=== PATIENT | male | born 1990 | race Caucasian/White ===

== ENCOUNTER 2017-02-17 12:46 | Emergency (ER) | payer SELFPAY ==
--- NOTE | 2017-02-17 12:56 | ER Document Report ---
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 It starts as a mild irritation and progresses to where he has been mucus discharge. He has had it intermittently for 2 months. No new job or living location. no eyeball pain. This morning he had some adherent mucous over the corneal and he rubbed it off causing worsening irritation to the right eyeball. No fever. No chronic dx psoriasis, excema, seborrhea, orarthritis. Also when he uses warm compress it causing the periorbital rash bilaterally. Associated Symptoms: None Exacerbated by: Denies Relieved by: Denies Similar symptoms previously: No Recently seen / treated by doctor: No - ROS ROS below otherwise negative: Yes Systems Reviewed and Negative: Yes All other systems reviewed and negative - DERM Skin Color: Normal Past Medical History - General Information source: Patient - Social History Smoking Status: Current Every Day Smoker Frequency of alcohol use: None Drug Abuse: None Lives with: Family Family History: Hypertension, Malignancy Pulmonary Medical History: Reports: Hx Asthma, Hx Bronchitis Neurological Medical History: Reports: Hx Migraine Renal/ Medical History: Denies: Hx Peritoneal Dialysis Surgical Hx: Negative - Immunizations Hx Diphtheria, Pertussis, Tetanus Vaccination: Yes Vertical Provider Document - CONSTITUTIONAL Agree With Documented VS: Yes Exam Limitations: No Limitations - INFECTION CONTROL TRAVEL OUTSIDE OF THE [place] IN LAST 30 DAYS: No - HEENT HEENT: Conjuctival Injection - bilateral, PERRLA Notes: inflamed bulbar and palpebral conjunctiva, anterior chambers clear, no ulcer. fluorescein uptake right cornea at 6 oclock with lesser uptake at 9 oclock. no auricular nodes. dermatitis ?seborrheic to upper nares, lateral canthi, upper lids - NECK Neck: Supple. negative: Lymphadenopathy-Left, Lymphadenopathy-Right - RESPIRATORY Respiratory: Breath Sounds Normal, No Respiratory Distress O2 Sat by Pulse Oximetry: 99 - CARDIOVASCULAR Cardiovascular: Regular Rate, Regular Rhythm - NEURO Level of Consciousness: Awake, Alert, Appropriate - DERM Integumentary: Warm, Dry, Rash - see above Course - Vital Signs Vital signs: Temp Pulse Resp BP Pulse Ox 97.7 F 87 16 134/67 H 99 02/17/17 12:53 02/17/17 12:53 02/17/17 12:53 02/17/17 12:53 02/17/17 12:53 Discharge - Discharge Clinical Impression: Periorbital dermatitis Right corneal abrasion Qualifiers: Encounter type: initial encounter Qualified Code(s): S05.01XA - Injury of conjunctiva and corneal abrasion without foreign body, right eye, initial encounter Conjunctivitis Qualifiers: Conjunctivitis type: acute Acute conjunctivitis type: unspecified Laterality: bilateral Qualified Code(s): H10.33 - Unspecified acute conjunctivitis, bilateral Condition: Good Disposition: HOME, SELF-CARE Instructions: Corneal Abrasion ([facility]), Conjunctivitis ([facility]), Ketorolac Tromethamine Eye Drops ([facility]), Eyedrop Use ([facility]), Contact Dermatitis ([facility]) Additional Instructions: see the eye doctor sunday return to the ER if worse tomorrow erythromycin eye ointment three times a day to the skin around your eyes where the rash is polytrim eye drops 1 drop each eye every 4 hours up to 6 doses per day 1 drop each eye for eyeball pain every 8 hours Please complete the patient satisfaction survey if you get one, and return it.. If you do not receive a survey, then you can go to the [facility] website, [email or web address] and place your comments about your very good care. Thank you very much. It was a pleasure being your medical provider today. Referrals: PATRICIA CHU MD [ACTIVE STAFF] - 02/19/17
[2017-02-17] MEDS ORDERED: ERYTHROMYCIN 0.5% OPH OINT 1 GM UNIT DOSE OU ONE (13:47)
[2017-02-17] MEDS ORDERED: KETOROLAC TROMETHAMINE 0.45% 4 DROP/0.4 ML DROPERETTE OU ONE (13:47)
[2017-02-17] MEDS ORDERED: POLYMYXIN B SULFATE/TMP OPH SOLN (10 ML/ER DISP) OU ONE (13:49)
[2017-02-17 15:06] VITALS: BP 132/78
== END 2017-02-17 15:07 | disposition home or self-care (01) ==
LOC: ER 12:46
DX: S05.01XA Injury of conjunctiva and corneal abrasion without foreign body, right eye, initial encounter (principal); H10.33 Unspecified acute conjunctivitis, bilateral; L30.8 Other specified dermatitis; H57.13 Ocular pain, bilateral; R21 Rash and other nonspecific skin eruption; F17.200 Nicotine dependence, unspecified, uncomplicated; X58.XXXA Exposure to other specified factors, initial encounter
CPT/HCPCS: 99282; J3490

== ENCOUNTER 2017-04-17 08:37 | Emergency (ER) | payer SELFPAY ==
[2017-04-17 08:54] VITALS: BP 127/71
--- NOTE | 2017-04-17 09:26 | ER Document Report ---
HPI - HPI Patient complains to provider of: eyes red and draining Onset: Other Onset/Duration: Gradual Quality of pain: Burning Severity: Moderate Pain Level: 3 Context: Patient states irritation started in left eye followed by greenish yellow drainage. He has been rubbing eyes, and now has spread to both eyes. Patient does not wear contacts. Associated Symptoms: None Exacerbated by: Denies Relieved by: Denies Similar symptoms previously: Yes Recently seen / treated by doctor: No - ROS ROS below otherwise negative: Yes Systems Reviewed and Negative: Yes All other systems reviewed and negative - CONSTITUTIONAL Constitutional: DENIES: Fever - EENT EENT: REPORTS: Eye problems. DENIES: Congestion - NEURO Neurology: DENIES: Headache - CARDIOVASCULAR Cardiovascular: DENIES: Chest pain - RESPIRATORY Respiratory: DENIES: Trouble Breathing - GASTROINTESTINAL Gastrointestinal: DENIES: Abdominal Pain - URINARY Urinary: DENIES: Dysuria - MUSCULOSKELETAL Musculoskeletal: DENIES: Extremity pain - DERM Skin Color: Normal Past Medical History - General Information source: Patient - Social History Smoking Status: Current Every Day Smoker Cigarette use (# per day): Yes Frequency of alcohol use: None Drug Abuse: None Lives with: Family Family History: Hypertension, Malignancy Patient has suicidal ideation: No Patient has homicidal ideation: No Pulmonary Medical History: Reports: Hx Asthma, Hx Bronchitis Neurological Medical History: Reports: Hx Migraine Surgical Hx: Negative - Immunizations Hx Diphtheria, Pertussis, Tetanus Vaccination: Yes Vertical Provider Document - CONSTITUTIONAL Agree With Documented VS: Yes Exam Limitations: No Limitations General Appearance: WD/WN, No Apparent Distress - INFECTION CONTROL TRAVEL OUTSIDE OF THE [place] IN LAST 30 DAYS: No - HEENT HEENT: Atraumatic, Conjuctival Injection, Normocephalic, PERRLA Notes: Greenish yellow drainage noted from both eyes - NECK Neck: Normal Inspection - RESPIRATORY Respiratory: Breath Sounds Normal, No Respiratory Distress O2 Sat by Pulse Oximetry: 98 - CARDIOVASCULAR Cardiovascular: Regular Rate, Regular Rhythm - GI/ABDOMEN Gastrointestinal: Abdomen Soft - MUSCULOSKELETAL/EXTREMETIES Musculoskeletal/Extremeties: JORGE JACKSON - NEURO Level of Consciousness: Awake, Alert, Appropriate - DERM Integumentary: Warm, Dry, No Rash Course - Vital Signs Vital signs: Temp Pulse Resp BP Pulse Ox 98.7 F 93 16 127/71 H 98 04/17/17 08:52 04/17/17 08:52 04/17/17 08:52 04/17/17 08:52 04/17/17 08:52 Discharge - Discharge Clinical Impression: Conjunctivitis Qualifiers: Conjunctivitis type: acute Acute conjunctivitis type: unspecified Laterality: bilateral Qualified Code(s): H10.33 - Unspecified acute conjunctivitis, bilateral Condition: Good Disposition: HOME, SELF-CARE Instructions: Conjunctivitis ([facility]), Eyedrop Use ([facility]) Additional Instructions: Warm compresses to eyes Do not rub eyes After conjunctivitis clears, may consider [id number] allergy eyedrops such as Naphcon A Follow-up with your eye doctor for recheck within 1 week return if worsens and as needed Prescriptions: Polymyxin B Sulf/Trimethoprim [Polytrim Eye Drops] 1 drop OU Q4H #1 bottle Forms: Return to Work
== END 2017-04-17 09:48 | disposition home or self-care (01) ==
LOC: ER 08:37
DX: H10.33 Unspecified acute conjunctivitis, bilateral (principal); J45.909 Unspecified asthma, uncomplicated; F17.210 Nicotine dependence, cigarettes, uncomplicated
CPT/HCPCS: 99283

== ENCOUNTER 2017-08-25 18:46 | Emergency (ER) | payer SELFPAY ==
[2017-08-25 18:51] VITALS: BP 134/81
[2017-08-25] MEDS ORDERED: ONDANSETRON 4 MG TAB.RAPDIS PO ONE (20:04)
--- NOTE | 2017-08-25 20:25 | ER Document Report ---
ED Flu Like - General Chief Complaint: Flu Symptoms Stated Complaint: NAUSEA Time Seen by Provider: 08/25/17 20:00 Mode of Arrival: Ambulatory Information source: Patient TRAVEL OUTSIDE OF THE [place] IN LAST 30 DAYS: No - HPI Patient complains to provider of: I feel like of the flu Onset: This morning Timing/Duration: Sudden Quality of pain: Achy Associated symptoms: Chills, Nonproductive cough, Nausea, Vomiting Similar symptoms previously: Yes Recently seen / treated by doctor: No Notes: States he feels against the flu. He did not get the flu shot this year because he does not have insurance. He states that he did take Motrin and Tylenol today however he is unable to tolerate food or fluids because he is vomiting. Smokes about a pack a day. - Related Data Allergies/Adverse Reactions: No Known Allergies Allergy (Verified 08/25/17 18:47) Past Medical History - General Information source: Patient - Social History Smoking Status: Current Every Day Smoker Chew tobacco use (# tins/day): No Frequency of alcohol use: None Drug Abuse: None Lives with: Family Family History: Hypertension, Malignancy Patient has suicidal ideation: No Patient has homicidal ideation: No - Past Medical History Cardiac Medical History: Reports: None Pulmonary Medical History: Reports: Hx Asthma, Hx Bronchitis EENT Medical History: Reports: None Neurological Medical History: Reports: Hx Migraine Endocrine Medical History: Reports: None Renal/ Medical History: Reports: None. Denies: Hx Peritoneal Dialysis Malignancy Medical History: Reports None GI Medical History: Reports: None Musculoskeltal Medical History: Reports None Skin Medical History: Reports None Psychiatric Medical History: Reports: None Traumatic Medical History: Reports: None Infectious Medical History: Reports: None Past Surgical History: Reports: None - Immunizations Hx Diphtheria, Pertussis, Tetanus Vaccination: Yes Review of Systems - Review of Systems Constitutional: See HPI EENT: See HPI Cardiovascular: No symptoms reported Respiratory: No symptoms reported Gastrointestinal: See HPI Genitourinary: No symptoms reported Male Genitourinary: No symptoms reported Musculoskeletal: No symptoms reported Skin: No symptoms reported Hematologic/Lymphatic: No symptoms reported Neurological/Psychological: No symptoms reported Physical Exam - Vital signs Vitals: Temp Pulse Resp BP Pulse Ox 98.5 F 102 H 16 134/81 H 99 08/25/17 18:50 08/25/17 18:50 08/25/17 18:50 08/25/17 18:50 08/25/17 18:50 - Notes Notes: PHYSICAL EXAMINATION: GENERAL: Well-appearing, well-nourished and in no acute distress. Sitting up on edge of bed looking at his phone when I came in to see him and examine him. HEAD: Atraumatic, normocephalic. EYES: Pupils equal round and reactive to light, extraocular movements intact, sclera anicteric, conjunctiva are normal. ENT: Nares patent, oropharynx clear without exudates. Moist mucous membranes. NECK: Normal range of motion, supple without lymphadenopathy LUNGS: Breath sounds clear to auscultation bilaterally and equal. No wheezes rales or rhonchi. HEART: Regular rate and rhythm without murmurs ABDOMEN: Soft, nontender, nondistended abdomen. No guarding, no rebound. No masses appreciated. Musculoskeletal: Normal range of motion, no pitting or edema. No cyanosis. NEUROLOGICAL: Cranial nerves grossly intact. Normal speech, normal gait. Normal sensory, motor exams PSYCH: Normal mood, normal affect. SKIN: Warm, Dry, normal turgor, no rashes or lesions noted. Course - Re-evaluation Re-evalutation: 08/25/17 20:48 Tolerated p.o. fluids. 08/25/17 20:48 Labs- All tests 24 hr 08/25/17 20:10 Influenza A (Rapid) NEGATIVE Influenza B (Rapid) NEGATIVE - Vital Signs Vital signs: Temp Pulse Resp BP Pulse Ox 98.5 F 102 H 16 134/81 H 99 08/25/17 18:50 08/25/17 18:50 08/25/17 18:50 08/25/17 18:50 08/25/17 18:50 Discharge - Discharge Clinical Impression: Viral syndrome Disposition: HOME, SELF-CARE Instructions: Acetaminophen, Fever ([facility]), Viral Syndrome ([facility]) Additional Instructions: Follow up with your physician tomorrow for further care or return to the ED IMMEDIATELY if symptoms worsen or new concerns occur. If you cannot afford to follow up with your primary care physician a list of low cost clinics have been provided at the end of your discharge papers as well. Prescriptions: Ondansetron [Zofran Odt 4 mg Tablet] 1 - 2 tab PO Q4H PRN #15 tab.rapdis PRN Reason: For Nausea/Vomiting Referrals: [facility] [Provider Group] - Follow up as needed
[2017-08-25 20:33] LABS: A TYPE INFLUENZA AG NEGATIVE (NEGATIVE); B INFLUENZA AG NEGATIVE (NEGATIVE)
== END 2017-08-25 20:52 | disposition home or self-care (01) ==
LOC: ER 18:46
DX: R11.2 Nausea with vomiting, unspecified (principal); B34.9 Viral infection, unspecified; R68.83 Chills (without fever); F17.200 Nicotine dependence, unspecified, uncomplicated
CPT/HCPCS: 99283; 87804; S0119

== ENCOUNTER 2019-05-04 20:25 | Emergency (ER) | payer SELFPAY ==
[2019-05-04] MEDS ORDERED: IPRATROPIUM/ALBUTEROL 0.5-2.5 MG/3 ML AMPUL NEB ONE (21:10)
[2019-05-04] MEDS ORDERED: PREDNISONE 20 MG TABLET PO ONE (21:10)
--- NOTE | 2019-05-04 21:13 | ER Document Report ---
ED General - General Chief Complaint: Fever Stated Complaint: FEVER Time Seen by Provider: 05/04/19 21:04 Notes: Patient is a 28-year-old male that comes emergency department for chief complaint of congestion, cough, sore throat, and feeling like he is running fevers at home for the past 3 days. He states he has been exposed to people who were positive for strep and told he had the flu. He smokes, he has a history of asthma, he does use a home albuterol inhaler which he states does help, he states he was wheezing more earlier. Patient also states that he has a fractured molar in the left upper jaw which has become painful over the past couple of days. He does have a dental follow-up planned but the tooth has become more painful. He denies any medication or medical history otherwise. He denies chest pain, vomiting, headache. TRAVEL OUTSIDE OF THE [place] IN LAST 30 DAYS: No - Related Data Allergies/Adverse Reactions: No Known Allergies Allergy (Verified 08/25/17 18:47) Past Medical History - General Information source: Patient - Social History Smoking Status: Current Every Day Smoker Frequency of alcohol use: Rare Drug Abuse: None Lives with: Family Family History: Hypertension, Malignancy Patient has suicidal ideation: No Patient has homicidal ideation: No Pulmonary Medical History: Reports: Hx Asthma, Hx Bronchitis Neurological Medical History: Reports: Hx Migraine Renal/ Medical History: Denies: Hx Peritoneal Dialysis - Immunizations Hx Diphtheria, Pertussis, Tetanus Vaccination: Yes Review of Systems - Review of Systems Constitutional: See HPI EENT: See HPI Cardiovascular: No symptoms reported Respiratory: See HPI Gastrointestinal: No symptoms reported Genitourinary: No symptoms reported Male Genitourinary: No symptoms reported Musculoskeletal: No symptoms reported Skin: No symptoms reported Hematologic/Lymphatic: No symptoms reported Neurological/Psychological: No symptoms reported Physical Exam - Vital signs Vitals: Temp Pulse Resp BP Pulse Ox 99.8 F 117 H 22 H 143/76 H 99 05/04/19 20:32 05/04/19 20:32 05/04/19 20:32 05/04/19 20:32 05/04/19 20:32 - Notes Notes: GENERAL: Alert, interacts well. No acute distress. HEAD: Normocephalic, atraumatic. EYES: Pupils equal, round, and reactive to light. Extraocular movements intact. ENT: Oral mucosa moist, tongue midline. Oropharynx unremarkable. Airway patent. Mild nasal congestion, no nasal septal hematoma, TM's intact. Left upper posterior molar fractured with erythema of the gumline and tenderness but no oral abscess or other concerning or pharyngeal exam findings. NECK: Full range of motion. Supple. Trachea midline. LUNGS: Frequent coughing, few scattered expiratory wheezes, clear breath sounds otherwise. No respiratory distress. HEART: Regular rate and rhythm. No murmur ABDOMEN: Soft, non-tender. Non-distended. Bowel sounds present in all 4 quadrants. GENITOURINARY: Deferred EXTREMITIES: Moves all 4 extremities spontaneously. No edema, normal radial and dorsalis pedis pulses bilaterally. No cyanosis. BACK: no cervical, thoracic, lumbar midline tenderness. No saddle anesthesia, normal distal neurovascular exam. Moves all extremities in full range of motion. NEUROLOGICAL: Alert and oriented x3. Normal speech. Cranial nerves II through XII grossly intact. PSYCH: Normal affect, normal mood. SKIN: Warm, dry, normal turgor. No rashes or lesions noted. Course - Re-evaluation Re-evalutation: Patient with frequent coughing on exam, sinus congestion, a few scattered coarse breath sounds and wheezes initially but this quickly resolved with a single DuoNeb. Patient is borderline tachycardic but has been using his albuterol. Oropharyngeal exam is very unremarkable, nontender sinuses, no headache or nuchal rigidity, unremarkable exam otherwise except for dental exam. Strep negative, influenza negative, chest x-ray negative for pneumonia. Most likely viral illness although patient does have additional dental infection. However he does not have oral abscess, swelling of the neck, evidence of Davion's angina. He was started on penicillin, prednisone, provided with an inhaler and spacer. Discussed dental follow-up, discussed return precautions in detail. Patient states appreciation and agreement with plan. - Vital Signs Vital signs: Temp Pulse Resp BP Pulse Ox 100.2 F 111 H 16 114/62 96 05/04/19 22:45 05/04/19 22:45 05/04/19 22:45 05/04/19 22:45 05/04/19 22:45 Discharge - Discharge Clinical Impression: Dental infection, Tobacco abuse Upper respiratory infection Qualifiers: URI type: unspecified URI Qualified Code(s): J06.9 - Acute upper respiratory infection, unspecified Asthma exacerbation Qualifiers: Asthma severity: mild Asthma persistence: unspecified Qualified Code(s): J45.901 - Unspecified asthma with (acute) exacerbation Condition: Stable Disposition: HOME, SELF-CARE Additional Instructions: Your strep and your influenza test are negative, your chest x-ray is negative. Your evaluation is consistent with a viral upper respiratory infection, asthma exacerbation, and dental infection. Take the antibiotics as prescribed, take the prednisone as prescribed, use your albuterol inhaler, and rest. Follow-up with the dental clinic for additional management or this will continue to occur. Return if you worsen including increased difficulty breathing, spiking fevers, swelling of the face, or any other concerning or worsening symptoms. Prescriptions: Prednisone [Deltasone 20 mg Tablet] 3 tab PO DAILY 5 Days #15 tablet Penicillin V Potassium [Penicillin Vk 500 mg Tablet] 500 mg PO BID #20 tablet Forms: Smoking Cessation Education
[2019-05-04 21:39] LABS: A TYPE INFLUENZA AG NEGATIVE (NEGATIVE); B INFLUENZA AG NEGATIVE (NEGATIVE)
--- NOTE | 2019-05-04 21:52 | RADIOLOGY REPORT (SQ) ---
EXAM DESCRIPTION: XR CHEST 2 VIEWS COMPLETED DATE/TME: 05/04/2019 21:11 CLINICAL HISTORY: 28 years, Male, productive cough, fevers COMPARISON: None. NUMBER OF VIEWS: 2 TECHNIQUE: Two views of the chest were obtained in [place] and lateral projection. LIMITATIONS: None. FINDINGS: Unremarkable cardiac and mediastinal silhouette. Heart size is normal. Lungs are clear without focal opacity, pneumothorax or pleural effusions. The visualized bones are within normal limits. IMPRESSION: No acute cardiopulmonary abnormalities. copyright 2010 [employer]- All Rights Reserved
[2019-05-04] MEDS ORDERED: PENICILLIN V POTASSIUM 500 MG TABLET PO ONE (22:05)
[2019-05-04] MEDS ORDERED: ALBUTEROL SULFATE HFA (90 MCG/PUFF) 8 GM MDI (1 MDI/ER DISP) IH ONE (22:05)
[2019-05-04] MEDS ORDERED: LIDOCAINE 2% VISCOUS SOLN 20 ML UDCUP PO ONE (22:30)
[2019-05-04 22:53] VITALS: BP 114/62
== END 2019-05-04 22:52 | disposition home or self-care (01) ==
LOC: ER 20:25
DX: J45.901 Unspecified asthma with (acute) exacerbation (principal); J06.9 Acute upper respiratory infection, unspecified; K04.7 Periapical abscess without sinus; R05 Cough; J02.9 Acute pharyngitis, unspecified; R09.81 Nasal congestion; F17.200 Nicotine dependence, unspecified, uncomplicated; Z20.818 Contact with and (suspected) exposure to other bacterial communicable diseases
CPT/HCPCS: 87070; 87880; 87804; 71046; J3490 ×2; J7512; J7620; 94640; 99283

== ENCOUNTER 2019-05-25 16:10 | Emergency (ER) | payer SELFPAY ==
--- NOTE | 2019-05-25 16:29 | ER Document Report ---
ED Medical Screen (RME) - General Chief Complaint: Cough Stated Complaint: COUGH Time Seen by Provider: 05/25/19 16:24 Mode of Arrival: Ambulatory Information source: Patient Notes: 28-year-old male presented to ED for cough cold congestion fever. He states he was in here about 3 weeks ago and had similar symptoms was told he had an upper respiratory infection with asthma exacerbation and they gave him antibiotics and steroids. He states he got better for a little bit but now is back to cough and congestion. He states he has had fevers again. He is alert oriented respirations regular nonlabored. States he was smoking a pack a day now he smokes about 5 cigarettes a day. I have greeted and performed a rapid initial assessment of this patient. A comprehensive ED assessment and evaluation of the patient, analysis of test results and completion of medical decision making process will be conducted by an additional ED providers. TRAVEL OUTSIDE OF THE [place] IN LAST 30 DAYS: No - Related Data Allergies/Adverse Reactions: No Known Allergies Allergy (Verified 08/25/17 18:47) Past Medical History Pulmonary Medical History: Reports: Hx Asthma, Hx Bronchitis Neurological Medical History: Reports: Hx Migraine Renal/ Medical History: Denies: Hx Peritoneal Dialysis - Immunizations Hx Diphtheria, Pertussis, Tetanus Vaccination: Yes Physical Exam - Vital signs Vitals: Temp Pulse Resp BP Pulse Ox 97.8 F 83 18 132/78 H 100 05/25/19 16:15 05/25/19 16:15 05/25/19 16:15 05/25/19 16:15 05/25/19 16:15 Course - Vital Signs Vital signs: Temp Pulse Resp BP Pulse Ox 97.8 F 83 18 132/78 H 100 05/25/19 16:15 05/25/19 16:15 05/25/19 16:15 05/25/19 16:15 05/25/19 16:15
--- NOTE | 2019-05-25 17:01 | RADIOLOGY REPORT (SQ) ---
EXAM DESCRIPTION: CHEST 2 VIEWS COMPLETED DATE/TIME: 05/25/2019 4:47 pm REASON FOR STUDY: Cough congestion runny nose fever COMPARISON: 05/04/2019 TECHNIQUE: Frontal and lateral radiographic views of the chest acquired. NUMBER OF VIEWS: Two view. LIMITATIONS: None. FINDINGS: LUNGS AND PLEURA: No pneumothorax. No consolidation or pleural effusion. MEDIASTINUM AND HILAR STRUCTURES: Stable. HEART AND VASCULAR STRUCTURES: Stable. BONES: No acute findings. HARDWARE: None in the chest. OTHER: No other significant finding. IMPRESSION: NO ACUTE FINDINGS. TECHNICAL DOCUMENTATION: JOB ID: [id number] [id number] 2010 [employer]- All Rights Reserved Reading location - IP/workstation name: [email or web address]
[2019-05-25] MEDS ORDERED: IPRATROPIUM/ALBUTEROL 0.5-2.5 MG/3 ML AMPUL NEB ONE (18:25)
[2019-05-25] MEDS ORDERED: PREDNISONE 20 MG TABLET PO ONE (18:25)
--- NOTE | 2019-05-25 18:36 | ER Document Report ---
ED Respiratory Problem - General Chief Complaint: Cough Stated Complaint: COUGH Time Seen by Provider: 05/25/19 16:24 Mode of Arrival: Ambulatory Notes: Patient is a 28-year-old female history of asthma presents to the emergency department for generalized cough and congestion. States he was seen previously for an upper respiratory infection. States he was given albuterol treatments and steroids. States he was feeling better until 2 days ago when he started again with generalized cough and congestion. Patient voices a subjective fever this morning. Patient voices he does smoke cigarettes on a daily basis. States he ran out of his albuterol inhaler. Patient's denying any increase in his mucus production. TRAVEL OUTSIDE OF THE [place] IN LAST 30 DAYS: No - Related Data Allergies/Adverse Reactions: No Known Allergies Allergy (Verified 05/25/19 16:28) Past Medical History - General Information source: Patient - Social History Smoking Status: Current Every Day Smoker Chew tobacco use (# tins/day): No Frequency of alcohol use: None Drug Abuse: None Family History: Hypertension, Malignancy Patient has suicidal ideation: No Patient has homicidal ideation: No Pulmonary Medical History: Reports: Hx Asthma, Hx Bronchitis Neurological Medical History: Reports: Hx Migraine Renal/ Medical History: Denies: Hx Peritoneal Dialysis - Immunizations Hx Diphtheria, Pertussis, Tetanus Vaccination: Yes Review of Systems - Review of Systems Constitutional: Fever EENT: See HPI Cardiovascular: See HPI Respiratory: See HPI Gastrointestinal: No symptoms reported Genitourinary: No symptoms reported Male Genitourinary: No symptoms reported Musculoskeletal: No symptoms reported Skin: No symptoms reported Hematologic/Lymphatic: No symptoms reported Neurological/Psychological: No symptoms reported Physical Exam - Vital signs Vitals: Temp Pulse Resp BP Pulse Ox 97.8 F 83 18 132/78 H 100 05/25/19 16:15 05/25/19 16:15 05/25/19 16:15 05/25/19 16:15 05/25/19 16:15 - Notes Notes: GENERAL: Alert, interacts well. No acute distress. HEAD: Normocephalic, atraumatic. EYES: Pupils equal, round, and reactive to light. Extraocular movements intact. ENT: Oral mucosa moist, tongue midline. NECK: Full range of motion. Supple. Trachea midline. LUNGS: Expiratory wheeze to auscultation bilateral bases, no discernible rales, or rhonchi. No respiratory distress. HEART: Regular rate and rhythm. No murmur ABDOMEN: Soft, non-tender. Non-distended. Bowel sounds present in all 4 quadrants. EXTREMITIES: Moves all 4 extremities spontaneously. No edema, normal radial and dorsalis pedis pulses bilaterally. No cyanosis. BACK: no cervical, thoracic, lumbar midline tenderness. No saddle anesthesia, normal distal neurovascular exam. NEUROLOGICAL: Alert and oriented x3. Normal speech. cranial nerves II through XII grossly intact. PSYCH: Normal affect, normal mood. SKIN: Warm, dry, normal turgor. No rashes or lesions noted. Course - Re-evaluation Re-evalutation: Chest X-Ray 05/25/19 16:29 IMPRESSION: NO ACUTE FINDINGS. Patient voices he does feel better after breathing treatments. Reevaluation of lung sounds patient has a scant and expiratory wheeze heard right lower lobe. Patient continues non-hypoxic, stable for discharge. Discussed continued use of albuterol and following up with primary care provider. Patient stable for discharge. - Vital Signs Vital signs: Temp Pulse Resp BP Pulse Ox 99.2 F 89 17 132/81 H 100 05/25/19 19:06 05/25/19 19:06 05/25/19 19:06 05/25/19 19:06 05/25/19 19:06 Discharge - Discharge Clinical Impression: Bronchitis Upper respiratory infection Qualifiers: URI type: unspecified viral URI Qualified Code(s): J06.9 - Acute upper respiratory infection, unspecified Condition: Stable Disposition: HOME, SELF-CARE Instructions: Bronchitis With Bronchospasm (Wheezing) (REPLACED BY [facility]), Upper Respiratory Infection, or Child (REPLACED BY [facility]) Additional Instructions: As we discussed you have been seen and treated in the emergency department for an exacerbation of your asthma. This is likely a viral infection. Please take steroids as prescribed. Please also use albuterol inhaler every 4 hours for the next 3 days. Please follow-up with your primary care provider in the next 12 to 24 hours. Return to the emergency room for any concerns. Prescriptions: Prednisone [Deltasone 20 mg Tablet] 3 tab PO DAILY 5 Days tablet Albuterol Sulfate [Proair HFA Inhalation Aerosol 8.5 gm MDI] 2 puff IH Q4H PRN #1 mdi PRN Reason: Forms: Return to Work
[2019-05-25] MEDS ORDERED: ALBUTEROL SULFATE HFA (90 MCG/PUFF) 8 GM MDI (1 MDI/ER DISP) IH ONE (18:45)
[2019-05-25 19:09] VITALS: BP 132/81
== END 2019-05-25 19:11 | disposition home or self-care (01) ==
LOC: ER 16:10
DX: J40 Bronchitis, not specified as acute or chronic (principal); J06.9 Acute upper respiratory infection, unspecified; R68.89 Other general symptoms and signs; R50.9 Fever, unspecified; F17.200 Nicotine dependence, unspecified, uncomplicated
CPT/HCPCS: 94640; 99283; 71046; J7512; J3490; J7620

== ENCOUNTER 2019-10-03 16:50 | Emergency (ER) | payer OTHER ==
[2019-10-03 17:04] VITALS: BP 147/71
[2019-10-03] MEDS ORDERED: LIDOCAINE 1% INJ-PF (10 MG/ML) 30 ML SDV INJ ONE (17:06)
[2019-10-03] MEDS ORDERED: DIPH/PERTUSS(ACELL)/TETANUS VAC/PF 0.5 ML SYR (>=10YO) IM ONE (17:06)
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
== END 2019-10-03 17:39 | disposition home or self-care (01) ==
LOC: ER 16:50
PROC: 0CQ1XZZ Repair Lower Lip, External Approach (ICD-10-PCS; principal; 2019-10-03)
DX: S01.511A Laceration without foreign body of lip, initial encounter (principal); Y04.0XXA Assault by unarmed brawl or fight, initial encounter; Z87.891 Personal history of nicotine dependence; J45.909 Unspecified asthma, uncomplicated
CPT/HCPCS: 99284; 90471; 90715; 12011; J3490

== ENCOUNTER 2020-03-28 21:31 | Inpatient (IN) | payer SELFPAY ==
--- NOTE | 2020-03-28 21:56 | ER Document Report ---
ED Medical Screen (RME) - General Chief Complaint: Hand Pain Stated Complaint: RIGHT HAND PAIN Time Seen by Provider: 03/28/20 21:51 TRAVEL OUTSIDE OF THE [place] IN LAST 30 DAYS: No - HPI Notes: 03/28/20 21:55 29-year-old male to the emergency department with complaints of progressively worsening pain and swelling of his ring finger on the right-hand side for the past 3 days. He states that he thought he maybe had a boil and try to open it. He states he did not get any drainage out of it except for blood. States he used a straight pen to try to open it. Denies any fevers or chills. States finger stuck in flexion. I performed a brief medical screening exam on the patient determined that the patient needs further evaluation and management by main side provider. I have placed initial orders to help expedite care. - Related Data Allergies/Adverse Reactions: No Known Allergies Allergy (Verified 05/25/19 16:28) Past Medical History Pulmonary Medical History: Reports: Hx Asthma, Hx Bronchitis Neurological Medical History: Reports: Hx Migraine Renal/ Medical History: Denies: Hx Peritoneal Dialysis - Immunizations Hx Diphtheria, Pertussis, Tetanus Vaccination: Yes Physical Exam - Vital signs Vitals: Temp Pulse Resp BP Pulse Ox 98.8 F 103 H 18 145/73 H 99 03/28/20 21:36 03/28/20 21:36 03/28/20 21:36 03/28/20 21:36 03/28/20 21:36 Course - Vital Signs Vital signs: Temp Pulse Resp BP Pulse Ox 98.8 F 103 H 18 145/73 H 99 03/28/20 21:36 03/28/20 21:36 03/28/20 21:36 03/28/20 21:36 03/28/20 21:36
[2020-03-28 22:43] LABS: ABSOLUTE BASOPHILS # (AUTO) 0.1 10^3/uL (0.0-0.2); ABSOLUTE EOSINOPHILS # (AUTO) 0.2 10^3/uL (0.0-0.6); ABSOLUTE LYMPHOCYTES (AUTO) 1.4 10^3/uL (0.5-4.7); ABSOLUTE MONOCYTES (AUTO) 0.9 10^3/uL (0.1-1.4); ABSOLUTE NEUT (AUTO) 7.2 10^3/uL (1.7-8.2); BASOPHILS % (AUTO) 1.3 % (0-2); EOSINOPHILS % (AUTO) 2.1 % (0-6); HEMATOCRIT 38.6 % (37.9-51.0); HEMOGLOBIN 13.3 g/dL (13.5-17.0); LYMPHOCYTES % (AUTO) 13.9 % (13-45); MEAN CORPUSCULAR HGB CONC 34.4 g/dL (32.0-36.0); MEAN CORPUSCULAR VOLUME 84 fl (80-97); MONOCYTES % (AUTO) 9.1 % (3-13); PLATELET COUNT 346 10^3/uL (150-450); RED BLOOD COUNT 4.58 10^6/uL (4.35-5.55); RED CELL DISTRIBUTION WIDTH 13.1 % (11.5-14.0); SEGMENTED NEUTROPHILS % (AUTO) 73.6 % (42-78); TOTAL CELLS COUNTED % (AUTO) 100 %; WHITE BLOOD COUNT 9.8 10^3/uL (4.0-10.5)
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
[2020-03-28 22:59] LABS: ALBUMIN 3.6 g/dL (3.5-5.0); ALKALINE PHOSPHATASE 83 U/L (38-126); ANION GAP 9 (5-19); ASPARTATE AMINO TRANSFERASE 57 U/L (17-59); BILIRUBIN,DIRECT 0.3 mg/dL (0.0-0.4); BILIRUBIN,TOTAL 0.4 mg/dL (0.2-1.3); BLOOD UREA NITROGEN 10 mg/dL (7-20); CALCIUM 9.1 mg/dL (8.4-10.2); CARBON DIOXIDE 27 mmol/L (22-30); CHLORIDE 100 mmol/L (98-107); GLUCOSE 128 mg/dL (75-110); POTASSIUM 4.1 mmol/L (3.6-5.0); TOTAL PROTEIN 7.4 g/dL (6.3-8.2)
--- NOTE | 2020-03-29 02:31 | ER Document Report ---
ED General - General Chief Complaint: Hand Swelling Stated Complaint: RIGHT HAND PAIN Time Seen by Provider: 03/28/20 21:51 TRAVEL OUTSIDE OF THE [place] IN LAST 30 DAYS: No - HPI Notes: 29 male presents with swelling to his right ring finger. Patient states about 2 days ago he noticed a "pus pocket" to the middle of his right ring finger, palm side. He states that he burned the tip of pin/sewing needle and attempted to lay it, states that only blood came out. He then noticed that his finger doubled in size. Yesterday again tried to lay it, blood came out, and finger further increased in size. He states that he cannot straighten his finger and it is very painful. He is right-handed. Additionally states about a week ago he had bedbugs, he sustained many bites to his torso and under his left armpit. He states that he bought chemicals from a low-dose to kill the bedbugs. The bites under his armpits are irritated, worse when he applies deodorant. Additionally states that his ears have hurt for a while and would like those looked at. - Related Data Allergies/Adverse Reactions: No Known Allergies Allergy (Verified 05/25/19 16:28) Past Medical History - General Information source: Patient - Social History Smoking Status: Current Every Day Smoker Chew tobacco use (# tins/day): No Frequency of alcohol use: None Drug Abuse: None Family History: Hypertension, Malignancy Pulmonary Medical History: Reports: Hx Asthma, Hx Bronchitis Neurological Medical History: Reports: Hx Migraine Renal/ Medical History: Denies: Hx Peritoneal Dialysis - Immunizations Hx Diphtheria, Pertussis, Tetanus Vaccination: Yes Review of Systems - Review of Systems Constitutional: denies: Fever EENT: Ear pain Cardiovascular: denies: Chest pain Respiratory: denies: Short of breath Gastrointestinal: denies: Abdominal pain Genitourinary: No symptoms reported Male Genitourinary: No symptoms reported Musculoskeletal: Joint swelling Skin: Lesions Neurological/Psychological: No symptoms reported Physical Exam - Vital signs Vitals: Temp Pulse Resp BP Pulse Ox 98.8 F 103 H 18 145/73 H 99 03/28/20 21:36 03/28/20 21:36 03/28/20 21:36 03/28/20 21:36 03/28/20 21:36 - General General appearance: Appears well, Alert - HEENT Head: Normocephalic, Atraumatic Extraocular movements intact: Yes Pupils: PERRL External canal: Normal Tympanic membrane: Normal - Respiratory Breath sounds: Normal - Cardiovascular Rhythm: Regular Normal capillary refill: Yes - Abdominal Inspection: Other - Too numerous to count old appearing insect bites - Extremities Notes: The right ring finger is markedly swollen and erythematous. There is fusiform swelling to the proximal and middle aspects. Finger is held in flexion. There is pain with extension. There is tenderness about the flexor aspect. - Neurological Neuro grossly intact: Yes Cognition: Normal Orientation: AAOx4 - Psychological Associated symptoms: Normal affect - Skin Skin Temperature: Warm Notes: He has numerous bed but appearing lesions to his torso and extremities. There is some irritation under the left axilla, no sandoval purulence or area of fluc tuance Course - Re-evaluation Re-evalutation: 29-year-old male reportedly lanced an abscess to his right ring finger twice in the past 2 days. He now has fusiform swelling, erythema, finger held in flexion and he has tenderness along the flexor tendon sheath. Highly concern for flexor tenosynovitis. Will start on empiric Vanco and Zosyn. Trial Toradol for pain. Additionally has multiple bedbug appearing bites to his torso, appear to be in the healing process. May be some contact irritation under his left axilla, does not look overtly infected. His TMs do not exhibit signs of otitis media. Laboratory evaluation obtained through triage process, he has no leukocytosis, electrolytes are within normal limits. Hand x-ray does not demonstrate gas. 03/29/20 02:48 Given the concern for flexor tenosynovitis, I discussed with Dr. Richards who has agreed to admit the patient. - Vital Signs Vital signs: Temp Pulse Resp BP Pulse Ox 98.8 F 103 H 18 145/73 H 99 03/28/20 21:36 03/28/20 21:36 03/28/20 21:36 03/28/20 21:36 03/28/20 21:36 - Laboratory Result Diagrams: 03/28/20 22:08 03/28/20 22:08 Laboratory results interpreted by me: 03/28/20 03/28/20 22:08 22:08 Hgb 13.3 L Sodium 135.8 L Glucose 128 H ALT 145 H - Diagnostic Test Radiology reviewed: Image reviewed, Reports reviewed Discharge - Discharge Clinical Impression: Flexor tenosynovitis of finger Disposition: ADMITTED INPATIENT Admitting Provider: Dr Ochoa Richards Unit Admitted: Surgical Floor
[2020-03-29] MEDS ORDERED: VANCOMYCIN HCL INJ 1000 MG VIAL IV ONE (02:42)
[2020-03-29] MEDS ORDERED: KETOROLAC TROMETHAMINE INJ/PF 30 MG/1 ML SDV IV ONE (02:42)
[2020-03-29] MEDS ORDERED: PIPERACILLIN/TAZOBACTAM 3.375 GM VIAL IV ONE (02:42)
[2020-03-29] MEDS ORDERED: ACETAMINOPHEN 325 MG TABLET PO PRN (06:10)
[2020-03-29] MEDS ORDERED: ZOLPIDEM TARTRATE 5 MG TABLET PO PRN (06:52)
[2020-03-29] MEDS ORDERED: MORPHINE SULFATE 10 MG/ML INJ IV PRN (06:52)
[2020-03-29] MEDS ORDERED: ONDANSETRON 4 MG TAB.RAPDIS PO PRN (06:52)
[2020-03-29] MEDS ORDERED: MAG HYDROX/AL HYDROX/SIMETH SUSP 30 ML UDCUP PO PRN (06:52)
[2020-03-29] MEDS ORDERED: PIPERACILLIN SODIUM/TAZOBACTAM 3.375 GM in NORMAL SALINE 100 ML IV SCH (09:00)
[2020-03-29] MEDS ORDERED: VANCOMYCIN HCL INJ 1000 MG VIAL IV SCH (10:00)
[2020-03-29] MEDS: DOCUSATE SODIUM 100 MG CAPSULE PO SCH (10:06)
[2020-03-29] MEDS: OXYCODONE HCL IR 5 MG TABLET PO PRN (10:25)
[2020-03-29] MEDS: PIPERACILLIN SODIUM/TAZOBACTAM 3.375 GM in NORMAL SALINE 100 ML IV SCH ×3 (11:30→23:30)
[2020-03-29] MEDS ORDERED: PIPERACILLIN/TAZOBACTAM 3.375 GM VIAL IV SCH (12:00)
[2020-03-29] MEDS: KETOROLAC TROMETHAMINE INJ/PF 30 MG/1 ML SDV IV SCH ×2 (12:03→17:28)
[2020-03-29] MEDS: VANCOMYCIN HCL 1,000 MG in DEXTROSE 5%-WATER 250 ML IV SCH ×2 (14:35→22:07)
[2020-03-29] MEDS: ACETAMINOPHEN 325 MG TABLET PO SCH ×2 (14:37→22:05)
[2020-03-29] MEDS ORDERED: VANCOMYCIN HCL 1,000 MG in DEXTROSE 5%-WATER 250 ML IV SCH (15:00)
--- NOTE | 2020-03-29 17:06 | PDOC H&P ---
History of Present Illness Admission Date/PCP: 03/29/20 04:01 History of Present Illness: JOELLEN TRAN is a 29 year old male presents with swelling, erythema, pain and inability to fully move his right ring finger. The patient reports that 3 days ago he had the initiation of swelling and a small pustule that he attempted to lay himself. He reports that after doing so with a sewing needle, only blood came out and he was unable to provide any relief. Over the next few days his s welling increased as well as erythema and pain. He tried to lay it once again and then decided to return to the emergency department. Pain to the finger is described as burning and aching, worse with any attempted motion, improved with rest and pain medication, 6 out of 10 at rest up to 10 out of 10 with motion. He denies any active drainage or purulence. He has had fever overnight since admission. He also has a history of bedbugs as of 3 weeks ago and was actively treating those at the time of admission. He has multiple small lesions under his armpits consistent with a bug bites. Past Medical History Pulmonary Medical History: Reports: Asthma, Bronchitis Neurological Medical History: Reports: Migraine Psychiatric Medical History: Denies: Depression Social History Smoking Status: Current Every Day Smoker Electronic Cigarette use?: No Drugs: None Family History Family History: Hypertension, Malignancy Parental Family History Reviewed: No Children Family History Reviewed: NA Sibling(s) Family History Reviewed.: NA Medication/Allergy Home Medications: Tramadol HCl [Ultram 50 mg Tablet] 50 mg PO Q6HP PRN #10 tablet 06/06/14 Amox Tr/Potassium Clavulanate [Augmentin 875-125 mg Tablet] 1 tab PO BID #20 tablet 07/27/14 Hydrocodone/Acetaminophen [Vicodin 5-300 mg Tablet] 1 - 2 tab PO ASDIR PRN #10 tab 07/27/14 Ibuprofen 800 mg PO Q8HP PRN #30 tablet 07/27/14 Prednisone 60 mg PO DAILY #9 tablet 07/27/14 Prednisone [Deltasone 20 mg Tablet] 3 tab PO DAILY 5 Days tablet 06/21/15 Prednisone [Deltasone 10 mg Tablet] 10 mg PO ASDIR PRN #21 tablet 12/14/15 Polymyxin B Sulf/Trimethoprim [Polytrim Eye Drops] 1 drop OU Q4H #1 bottle Ondansetron [Zofran Odt 4 mg Tablet] 1 - 2 tab PO Q4H PRN #15 tab.rapdis 08/25/17 Penicillin V Potassium [Penicillin Vk 500 mg Tablet] 500 mg PO BID #20 tablet 05/04/19 Prednisone [Deltasone 20 mg Tablet] 3 tab PO DAILY 5 Days #15 tablet 05/04/19 Albuterol Sulfate [Proair HFA Inhalation Aerosol 8.5 gm MDI] 2 puff IH Q4H PRN #1 mdi 05/25/19 Prednisone [Deltasone 20 mg Tablet] 3 tab PO DAILY 5 Days tablet 05/25/19 Allergies/Adverse Reactions: No Known Allergies Allergy (Verified 03/29/20 03:09) Review of Systems Review of Systems: Constitutional: ABSENT: anorexia, chills, night sweats Cardiovascular: ABSENT: chest pain Respiratory: ABSENT: dyspnea Gastrointestinal: ABSENT: vomiting Genitourinary: ABSENT: dysuria Integumentary: Present, rash from bedbug bites under both arms. Neurological: ABSENT: confusion, memory loss, numbness Psychiatric: ABSENT: hallucinations Hematologic/Lymphatic: ABSENT: easy bleeding All negative as above aside from that reported in the HPI and the following: Recent fevers and sweating over the last 24 hours Physical Exam Vital Signs: Temp Pulse Resp BP Pulse Ox 98.3 F 76 19 109/53 L 100 03/29/20 16:00 03/29/20 16:00 03/29/20 16:00 03/29/20 16:00 03/29/20 16:00 Intake & Output 03/28/20 03/29/20 03/30/20 06:59 06:59 06:59 Intake Total 350 1200 Balance 350 1200 Weight 66.9 kg Physical Exam: General appearance: PRESENT: no acute distress, cooperative, well-nourished Head exam: PRESENT: atraumatic, normocephalic Eye exam: PRESENT: EOMI Ear exam: PRESENT: normal external ear exam Mouth exam: PRESENT: neck supple Neck exam: ABSENT: tracheal deviation Respiratory exam: PRESENT: symmetrical, unlabored. ABSENT: accessory muscle use, wheezes Pulses: PRESENT: normal radial pulses, normal dorsalis pedis pulse Vascular exam: PRESENT: normal capillary refill GI/Abdominal exam: ABSENT: distended, firm Extremities exam: PRESENT: full ROM of bilateral shoulders, elbows wrists, knees, hips and ankles without pain Musculoskeletal exam: PRESENT: full ROM, normal inspection of all 4 extremities aside from that noted below. Neurological exam: PRESENT: alert, awake, oriented to person, oriented to place, oriented to time Psychiatric exam: PRESENT: appropriate affect. ABSENT: agitated Focused psych exam: ABSENT: catatonic Skin exam: PRESENT: intact, rash present under bilateral axilla consistent with bedbug bites. ABSENT: dry All as above aside from that noted in the HPI and the following: Upper extremity sensation grossly intact to radial median and ulnar nerve. upper extremity motor function grossly intact to radian median ulnar nerve AIN and PIN Pulses 2+, capillary refill less than 2 seconds No deformity noted full range of motion of the elbow shoulder wrist and fingers without pain Compartments soft, no tenderness to palpation skin intact The right ring finger has swelling mostly located at the middle phalanx. It is not fusiform throughout the length of the digit, there is no tenderness proximally along the tendon sheath or into the forearm. There is no proximal erythema. There is a nidus with a very small amount of subcutaneous purulence apparent at the middle phalanx. Results Laboratory Results: 03/28/20 22:08 03/28/20 22:08 03/28/20 03/28/20 22:08 22:08 WBC 9.8 RBC 4.58 Hgb 13.3 L Hct 38.6 MCV 84 MCH 29.0 MCHC 34.4 RDW 13.1 Plt Count 346 Seg Neutrophils % 73.6 Sodium 135.8 L Potassium 4.1 Chloride 100 Carbon Dioxide 27 Anion Gap 9 BUN 10 Creatinine 0.73 Est GFR ( Amer) > 60 Glucose 128 H Calcium 9.1 Total Bilirubin 0.4 AST 57 Alkaline Phosphatase 83 Total Protein 7.4 Albumin 3.6 Impressions: Hand X-Ray 03/28/20 21:54 IMPRESSION: No acute osseous abnormality. Nonspecific soft tissue swelling of the fourth digit copyright 2010 [employer]- All Rights Reserved Assessment & Plan - Diagnosis (1) Abscess of right ring finger Is this a current diagnosis for this admission?: Yes Plan: At this time given the physical exam I believe this is more an incidence of a deep infection and abscess of the right finger rather than flexor tenosynovitis. Given that the nidus is not developed yet, will provide IV antibiotics 24 hours and reevaluate. If further development of nidus tomorrow, will lay at bedside Continue IV antibiotics as currently ordered We will consider ID consult pending culture results Pain control as currently prescribed. Follow blood cultures - Time Anticipated Discharge Disposition: Home, Self Care Anticipated Discharge Timeframe: within 72 hours
[2020-03-30] MEDS: PIPERACILLIN SODIUM/TAZOBACTAM 3.375 GM in NORMAL SALINE 100 ML IV SCH ×5 (00:42→23:21)
[2020-03-30] MEDS: KETOROLAC TROMETHAMINE INJ/PF 30 MG/1 ML SDV IV SCH ×5 (00:44→23:21)
[2020-03-30] MEDS: OXYCODONE HCL IR 5 MG TABLET PO PRN (04:54)
[2020-03-30] MEDS: PANTOPRAZOLE SODIUM 20 MG TABLET.DR PO SCH (05:26)
[2020-03-30] MEDS: ACETAMINOPHEN 325 MG TABLET PO SCH ×3 (05:26→22:29)
[2020-03-30 05:54] LABS: ABSOLUTE EOSINOPHILS # (AUTO) 0.3 10^3/uL (0.0-0.6); ABSOLUTE LYMPHOCYTES (AUTO) 1.9 10^3/uL (0.5-4.7); ABSOLUTE NEUT (AUTO) 6.9 10^3/uL (1.7-8.2); BASOPHILS % (AUTO) 0.2 % (0-2); EOSINOPHILS % (AUTO) 2.9 % (0-6); HEMATOCRIT 35.2 % (37.9-51.0); HEMOGLOBIN 12.2 g/dL (13.5-17.0); MEAN CORPUSCULAR HEMOGLOBIN 29.3 pg (27.0-33.4); MEAN CORPUSCULAR HGB CONC 34.8 g/dL (32.0-36.0); MEAN CORPUSCULAR VOLUME 84 fl (80-97); MONOCYTES % (AUTO) 9.8 % (3-13); PLATELET COUNT 283 10^3/uL (150-450); RED BLOOD COUNT 4.17 10^6/uL (4.35-5.55); SEGMENTED NEUTROPHILS % (AUTO) 68.1 % (42-78); TOTAL CELLS COUNTED % (AUTO) 100 %; WHITE BLOOD COUNT 10.1 10^3/uL (4.0-10.5)
[2020-03-30] MEDS: VANCOMYCIN HCL 1,000 MG in DEXTROSE 5%-WATER 250 ML IV SCH ×4 (06:28→22:29)
[2020-03-30] MEDS ORDERED: DEXTROSE 50%-WATER 25 GM/50 ML DISP.SYRIN IV PRN ×2 (07:18)
[2020-03-30] MEDS ORDERED: DEXTROSE 40% GEL 15 GM TUBE PO PRN ×2 (07:18)
[2020-03-30] MEDS ORDERED: GLUCAGON,HUMAN RECOMB 1 MG INJ SUBCUT PRN (07:18)
[2020-03-30] MEDS ORDERED: NORMAL SALINE 1000 ML 1,000 ML IV PRN (07:55)
[2020-03-30] MEDS ORDERED: ACETAMINOPHEN 325 MG TABLET PO PRN (07:56)
[2020-03-30] MEDS: DEXTROSE 5%-WATER 1000 ML 1,000 ML IV PRN (10:00)
[2020-03-30] MEDS: DOCUSATE SODIUM 100 MG CAPSULE PO SCH (11:05)
--- NOTE | 2020-03-30 14:49 | PDOC PROGRESS REPORT ---
Subjective Progress Note for:: 03/30/20 Subjective:: Patient seen and evaluated this morning. No acute events overnight. Reason For Visit: FLEXOR TENOSYNOVITIS Physical Exam Vital Signs: Temp Pulse Resp BP Pulse Ox 98.3 F 89 12 109/45 L 100 03/30/20 11:38 03/30/20 11:38 03/30/20 11:38 03/30/20 11:38 03/30/20 11:38 Intake & Output 03/29/20 03/30/20 03/31/20 06:59 06:59 06:59 Intake Total 350 3290 822 Balance 350 3290 822 Weight 66.9 kg 66.9 kg Physical Exam: No acute distress alert and orient x3 Right upper extremity neurovascular intact The right ring finger has swelling mostly located at the middle phalanx. Swelling has increased, purulence is more apparent this time. Still no drainage but an area of overt fluctuance not expanding from the PIP to the DIP and MCP. There is no tenderness proximally along the tendon sheath or into the forearm. There is no proximal erythema. Results Laboratory Results: 03/30/20 05:37 03/28/20 22:08 03/30/20 05:37 WBC 10.1 RBC 4.17 L Hgb 12.2 L Hct 35.2 L MCV 84 MCH 29.3 MCHC 34.8 RDW 13.0 Plt Count 283 Seg Neutrophils % 68.1 Impressions: Hand X-Ray 03/28/20 21:54 IMPRESSION: No acute osseous abnormality. Nonspecific soft tissue swelling of the fourth digit copyright 2011 [employer]- All Rights Reserved Assessment & Plan - Diagnosis (1) Abscess of right ring finger Is this a current diagnosis for this admission?: Yes Plan: Patient will need formal I&D today, planning for OR this afternoon Keep n.p.o. Continue current antibiotics We will consult infectious disease We will place a Kelsey drain in this procedure which will need to be removed tomorrow if not self expressed while the patient is performing his daily soaks. Plan for twice daily Dakin soaks, 20 minutes at a time. - Time Time Spent with patient: Less than 15 minutes
[2020-03-30 15:05] LABS: VANCOMYCIN,TROUGH 13.7 ug/mL (5.0-20.0)
[2020-03-30] MEDS ORDERED: FENTANYL CITRATE INJ/PF 100 MCG/2 ML AMPUL ONE ×2 (15:14→16:10)
[2020-03-30] MEDS ORDERED: PROPOFOL INJ 200 MG/20 ML VIAL IV ONE ×2 (15:15→16:48)
[2020-03-30] MEDS ORDERED: MIDAZOLAM 2 MG/2 ML INJ ONE (15:15)
[2020-03-30] MEDS ORDERED: BUPIVACAINE HCL 0.5 % INJ/PF 30 ML SDV ONE ×2 (15:17→15:30)
[2020-03-30] MEDS ORDERED: LIDOCAINE 1%/EPINEPHRINE INJ 20 ML VIAL ONE (15:17)
[2020-03-30] MEDS ORDERED: KETAMINE HCL INJ 500 MG/10 ML VIAL ONE (16:09)
[2020-03-30] MEDS ORDERED: OXYCODONE-ACETAMINOPHEN 5-325 MG TABLET PO PRN ×2 (16:20)
[2020-03-30] MEDS ORDERED: DIPHENHYDRAMINE HCL 50 MG/ML VIAL IV PRN (16:20)
[2020-03-30] MEDS ORDERED: FENTANYL CITRATE INJ/PF 100 MCG/2 ML AMPUL IV PRN (16:20)
[2020-03-30] MEDS ORDERED: PROMETHAZINE HCL INJ 25 MG/1 ML VIAL IV PRN (16:20)
[2020-03-30] MEDS ORDERED: MORPHINE SULFATE 10 MG/ML INJ IV PRN (16:20)
[2020-03-30] MEDS ORDERED: DEXMEDETOMIDINE INJ 80 MCG/20 ML VIAL IV ONE (16:47)
--- NOTE | 2020-03-30 17:04 | Operative Report ---
Operative Report DATE OF SURGERY: 03/30/20 PREOPERATIVE DIAGNOSIS: Right ring finger abscess POSTOPERATIVE DIAGNOSIS: Deep abscess of right ring finger OPERATION: Right ring finger and incision and debridement. SURGEON: WHITNEY HAWTHORNE JR ANESTHESIA: Moderate Sedation - With local TISSUE REMOVED OR ALTERED: Multiple cultures sent to microbiology. COMPLICATIONS: None ESTIMATED BLOOD LOSS: 10 cc PROCEDURE: Patient has a right ring finger abscess that is developed substantially over the last day. This is not tracked proximally there is no current signs of flexion synovitis however is progressed to the point that it needs operative intervention in order to decompress and prevent any further spread of infection. The patient was brought to the operating suite and laid supine on the operating table. Preoperatively the patient was on continuous antibiotics however his vancomycin dose was scheduled just prior to surgery. The right upper extremities prepped and draped in sterile sterile fashion. A timeout was performed. The incision was marked and a digital block was provided to the palmar surface with approximately 10 cc of 1% lidocaine. An incision was made over the central aspect of the abscess in a Tariq type fashion with the center of the abscess localized at the volar PIP joint. Immediately upon dissecting through skin, dishwater type fluid was encountered followed by gross purulence. This was expressed as much as possible we continue to reflect the skin back and was able to identify the flexor tendon and the surrounding tissue. This was thoroughly irrigated and gently debrided with blunt dissection. Irrigation fluid was dilute Betadine solution. After copious irrigation the wound was further explored for any necrotic tissue which was carefully removed with a rondure. Copious irrigation was repeated followed by application of a Kelsey drain into the wound. The proximal portion of the incision was closed with 3-0 nylon and the Kelsey was allowed to exit the distal portion of the wound. This was then sewn in place with a 3-0 nylon. A sterile dressing was then placed and the patient was then awakened from anesthesia and transferred to PACU in stable condition.
[2020-03-31] MEDS: KETOROLAC TROMETHAMINE INJ/PF 30 MG/1 ML SDV IV SCH ×2 (00:48→06:32)
[2020-03-31] MEDS: PIPERACILLIN SODIUM/TAZOBACTAM 3.375 GM in NORMAL SALINE 100 ML IV SCH ×4 (00:48→17:38)
[2020-03-31] MEDS: DEXTROSE 5%-WATER 1000 ML 1,000 ML IV PRN (02:57)
[2020-03-31] MEDS: VANCOMYCIN HCL 1,000 MG in DEXTROSE 5%-WATER 250 ML IV SCH ×3 (06:30→23:05)
[2020-03-31] MEDS: ACETAMINOPHEN 325 MG TABLET PO SCH ×3 (06:31→22:05)
[2020-03-31] MEDS: PANTOPRAZOLE SODIUM 20 MG TABLET.DR PO SCH (06:32)
--- NOTE | 2020-03-31 07:42 | PDOC PROGRESS REPORT ---
Subjective Progress Note for:: 03/31/20 Subjective:: Patient doing well this morning. Patient had episode of sweating this morning. No other acute events overnight. Admitted to nursing staff this morning that he has had a history of IV drug abuse. He initially denied this. Reports reusing his needles. Reason For Visit: FLEXOR TENOSYNOVITIS Physical Exam Vital Signs: Temp Pulse Resp BP Pulse Ox 100.2 F 98 20 129/65 H 96 03/30/20 23:58 03/30/20 23:58 03/30/20 23:58 03/30/20 23:58 03/30/20 23:58 Intake & Output 03/30/20 03/31/20 04/01/20 06:59 06:59 06:59 Intake Total 3290 5681 Output Total 3 Balance 3290 5678 Weight 66.9 kg 68.5 kg Physical Exam: No acute distress, alert and orient x3 Profuse sweating Right ring finger grossly neurovascular intact Wound is clean and intact Drain is in place Dressing removed in the room this morning -No signs of progressive infection at this time, mild drainage in the dressing. Results Laboratory Results: 03/30/20 05:37 03/28/20 22:08 Impressions: Hand X-Ray 03/28/20 21:54 IMPRESSION: No acute osseous abnormality. Nonspecific soft tissue swelling of the fourth digit copyright 2011 [employer]- All Rights Reserved Assessment & Plan - Diagnosis (1) Abscess of right ring finger Is this a current diagnosis for this admission?: Yes Plan: -We will plan to pull the drain either this afternoon or tomorrow morning. Start Dakin's solution soaks twice daily for 20 minutes at a time Continue current IV antibiotics ID consult pending Patient admitted to IV drug abuse after previously denying, will consult medicine for further potential work-up including any concern for potential endocarditis. Begin gentle range of motion of the fingers and hand. - Time Time Spent with patient: Less than 15 minutes
[2020-03-31] MEDS: DOCUSATE SODIUM 100 MG CAPSULE PO SCH (11:28)
[2020-03-31] MEDS: ASPIRIN 325 MG TABLET PO SCH (11:28)
[2020-03-31] MEDS: SODIUM HYPOCHLORITE 0.25% SOLN 473 ML BOTTLE TP SCH ×2 (11:29→20:47)
[2020-03-31] MEDS ORDERED: ALBUTEROL SULFATE 0.083% NEB 2.5 MG/3 ML AMPUL NEB PRN (13:43)
--- NOTE | 2020-03-31 13:53 | PDOC CONSULTATION ---
Consultation Consult Date: 03/31/20 Attending physician:: WHITNEY HAWTHORNE JR Provider Consulted: NAILA JOSEPH Consult reason:: IVDU, Finger abscess. Need for further w/u? History of Present Illness Admission Date/PCP: 03/29/20 04:01 History of Present Illness: JOELLEN TRAN is a 29 year old male with history of IV drug abuse with methamphetamine, asthma, who presented to the hospital for evaluation of wound on his middle finger with associated swelling. Patient was admitted under orthopedic service. He was treated for abscess in the right middle finger. He was taken to the OR yesterday for I&D. He was later found out that patient was an IV drug abuser. Subsequently medicine service was consulted to see if further work-up for potential endocarditis was required. Currently, patient states he feels better. Patient does admit to using methamphetamines every now and then intravenously. He denies sticking a needle in his finger. He denies any shortness of breath. Denies any chest pain or other lesions not accounted for by trauma. Past Medical History Pulmonary Medical History: Reports: Asthma Neurological Medical History: Reports: Migraine Psychiatric Medical History: Denies: Depression Past Surgical History Past Surgical History: Reports: None Social History Smoking Status: Current Every Day Smoker Electronic Cigarette use?: No Drugs: None Family History Family History: Hypertension, Malignancy Parental Family History Reviewed: Yes Children Family History Reviewed: NA Sibling(s) Family History Reviewed.: NA Medication/Allergy Home Medications: No Home Medications 03/30/20 Allergies/Adverse Reactions: No Known Allergies Allergy (Verified 03/29/20 03:09) Review of Systems Constitutional: PRESENT: fever(s). ABSENT: fatigue, night sweats Eyes: ABSENT: visual disturbances Ears: ABSENT: hearing changes Nose, Mouth, and Throat: ABSENT: headache(s), mouth pain, sore throat Cardiovascular: ABSENT: chest pain, dyspnea on exertion, edema, orthropnea Respiratory: ABSENT: cough, dyspnea Gastrointestinal: ABSENT: abdominal pain, diarrhea, hematemesis, hematochezia, nausea, vomiting Integumentary: ABSENT: diaphoresis Neurological: ABSENT: dizziness Endocrine: ABSENT: polyuria Hematologic/Lymphatic: ABSENT: easy bleeding Physical Exam Vital Signs: Temp Pulse Resp BP Pulse Ox 97.7 F 66 24 H 116/64 99 03/31/20 12:36 03/31/20 12:36 03/31/20 12:36 03/31/20 12:36 03/31/20 12:36 Intake & Output 03/30/20 03/31/20 04/01/20 06:59 06:59 06:59 Intake Total 3290 5681 922 Output Total 3 Balance 3290 5678 922 Weight 66.9 kg 68.5 kg General appearance: PRESENT: no acute distress, cooperative Eye exam: PRESENT: EOMI. ABSENT: conjunctival injection, periorbital swelling Mouth exam: PRESENT: neck supple. ABSENT: laceration Neck exam: ABSENT: JVD, tracheal deviation Respiratory exam: PRESENT: clear to auscultation norma, symmetrical, unlabored. ABSENT: tachypnea, wheezes Cardiovascular exam: PRESENT: RRR, +S1, +S2. ABSENT: diastolic murmur, systolic murmur, tachycardia GI/Abdominal exam: PRESENT: rigid. ABSENT: ascites, distended, rebound, soft, tenderness Extremities exam: ABSENT: calf tenderness, joint swelling, pedal edema, tenderness, +1 edema, +2 edema Neurological exam: PRESENT: alert, awake, oriented to person, oriented to place, oriented to time, oriented to situation. ABSENT: ataxia, motor sensory deficit Psychiatric exam: PRESENT: appropriate affect, normal mood. 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 ABSENT: erythema, jaundice, rash Results Laboratory Results: 03/30/20 05:37 03/28/20 22:08 Impressions: Hand X-Ray 03/28/20 21:54 IMPRESSION: No acute osseous abnormality. Nonspecific soft tissue swelling of the fourth digit copyright 2010 [employer]- All Rights Reserved Assessment and Plan - Diagnosis (1) Abscess of right ring finger Is this a current diagnosis for this admission?: Yes (2) IV drug abuse Is this a current diagnosis for this admission?: Yes (3) Chronic asthma Qualifiers: Asthma severity: mild Asthma persistence: intermittent Asthma complication type: uncomplicated Qualified Code(s): J45.20 - Mild intermittent asthma, uncomplicated Is this a current diagnosis for this admission?: Yes - Plan Summary Summary: Patient does have history of IV methamphetamine use - After thorough conversation and evaluation of patient, I do not recommend any further work-up for endocarditis as patient's blood cultures are negative >48h rs, his fever is gradually resolving following source control with I&D and patient does not show any other significant stigmata associated with endocarditis. -Recommend treating for finger abscess with IV antibiotics and transitioning to p.o. antibiotics -Follow-up wound culture -Recommend social work to discuss with patient about options for drug abuse rehabilitation outpatient if patient is willing. -Asthma is currently controlled -Check HIV and hepatitis profile -he does not need to wait inpatient for the result if deemed clinically ready for discharge and can always follow up for the result as outpatient. If any of the test is positive, he will need referral to [facility] as outpatient to initiate treatment. Discussed plan with Dr. Hawthorne. I will sign off. Please feel free to call with questions. - Time Time Spent with patient: 25-34 minutes Anticipated Discharge Disposition: Home, Self Care Anticipated Discharge Timeframe: per primary provider
[2020-04-01] MEDS: PIPERACILLIN SODIUM/TAZOBACTAM 3.375 GM in NORMAL SALINE 100 ML IV SCH ×2 (01:00→05:18)
[2020-04-01] MEDS: VANCOMYCIN HCL 1,000 MG in DEXTROSE 5%-WATER 250 ML IV SCH (06:03)
[2020-04-01] MEDS: ACETAMINOPHEN 325 MG TABLET PO SCH (06:04)
[2020-04-01] MEDS: PANTOPRAZOLE SODIUM 20 MG TABLET.DR PO SCH (06:04)
--- NOTE | 2020-04-01 08:40 | Progress Note ---
Provider Note Provider Note: [facility] ID Telephone Advice Chart reviewed. Patient is a 29-year-old man, with active IVDU (reuses needles) who presented to the hospital due to right ring finger infection. It started few days ago with redness, swelling and pain. He developed a pustule and tried to lay it with a needle. Symptoms got worse after that and he had a second attempt to drain it but it was unsuccessful. He came to the ED and was admitted. He was evaluated by orthopedics and was taken to the OR on 03/30. Per operative note there was gross purulence deep to the flexion tendon. Blood cultures from admission on 03/29 are negative, wound cultures from 03/30 are both positive for MRSA. He is on vancomycin and zosyn. ID consulted for recommendations. PMH: IVDU Allergies: No Known Allergies Allergy (Verified 03/29/20 03:09) Medications: No Home Medications 03/30/20 Vital Signs: Temp Pulse Resp BP Pulse Ox 98.9 F 75 20 141/65 H 99 03/31/20 23:26 03/31/20 23:26 03/31/20 23:26 03/31/20 23:26 03/31/20 23:26 Intake & Output 03/31/20 04/01/20 04/02/20 06:59 06:59 06:59 Intake Total 5681 4234 250 Output Total 3 Balance 5678 4234 250 Weight 68.5 kg 68.5 kg Weight/Height Weight 68.5 kg Height 6 ft Laboratories: 03/30/20 05:37 03/28/20 22:08 MCV 84 fl (80-97) 03/30/20 05:37 MCH 29.3 pg (27.0-33.4) 03/30/20 05:37 MCHC 34.8 g/dL (32.0-36.0) 03/30/20 05:37 RDW 13.0 % (11.5-14.0) 03/30/20 05:37 Seg Neutrophils % 68.1 % (42-78) 03/30/20 05:37 Chloride 100 mmol/L (98-107) 03/28/20 22:08 Carbon Dioxide 27 mmol/L (22-30) 03/28/20 22:08 Anion Gap 9 (5-19) 03/28/20 22:08 Est GFR ( Amer) > 60 (>60) 03/28/20 22:08 Glucose 128 mg/dL (75-110) H 03/28/20 22:08 Calcium 9.1 mg/dL (8.4-10.2) 03/28/20 22:08 Total Bilirubin 0.4 mg/dL (0.2-1.3) 03/28/20 22:08 AST 57 U/L (17-59) 03/28/20 22:08 Alkaline Phosphatase 83 U/L (38-126) 03/28/20 22:08 Total Protein 7.4 g/dL (6.3-8.2) 03/28/20 22:08 Albumin 3.6 g/dL (3.5-5.0) 03/28/20 22:08 03/30/20 16:10 Finger - Right Ring Finger Gram Stain - Final 03/30/20 16:10 Finger - Right Ring Finger Wound Culture - Final Mrsa (Meth Resis Staph Aureus) No Anaerobic Organisms 03/30/20 16:10 Finger - Right Ring Finger Gram Stain - Final 03/30/20 16:10 Finger - Right Ring Finger Wound Culture - Final Mrsa (Meth Resis Staph Aureus) No Anaerobic Organisms 03/29/20 Blood NGTD Radiology: Hand X-Ray 03/28/20 21:54 IMPRESSION: No acute osseous abnormality. Nonspecific soft tissue swelling of the fourth digit Assessment and Recommendations: Patient evaluated for right ring finger cellulitis with soft tissue infection. Per notes, it seems that there was purulence deep to the area of the tendon possible flexor tenosynovitis. He admitted using IVD and reusing his needles which puts him at risk of skin and soft tissue infection, but also systemic infection. Can consider a baseline TTE. Fortunately his blood cultures remain negative and hopefully this is a localized infection for which he has had source control with surgery. So far no signs of progression of the infection. Can discontinue zosyn at this time. Consider baseline ESR and CRP. Continue vancomycin for now, keep trough 15-20 and monitor GFR. When ready to be discharged, can transition to Bactrim DS 1 tab po BID to complete a total of 3 weeks from the day of the surgery (EOT 04/20/20). PLease call if questions. Meera Piedra MD [facility] ID [id number]
[2020-04-01 10:37] LABS: HEPATITS B SURFACE ANTIGEN Negative (Negative)
[2020-04-01] MEDS: SODIUM HYPOCHLORITE 0.25% SOLN 473 ML BOTTLE TP SCH (10:40)
[2020-04-01] MEDS: ASPIRIN 325 MG TABLET PO SCH (10:42)
[2020-04-01] MEDS: DOCUSATE SODIUM 100 MG CAPSULE PO SCH (10:42)
[2020-04-01 11:03] LABS: HEPATITIS C VIRUS ANTIBODY >11.0 s/co ratio (0.0-0.9)
--- NOTE | 2020-04-01 13:00 | PDOC DISCHARGE SUMMARY ---
Impression - Admit/DC Date/PCP Admission Date/Primary Care Provider: 03/29/20 04:01 Discharge Date: 04/01/20 - Discharge Diagnosis (1) Abscess of right ring finger Is this a current diagnosis for this admission?: Yes - Assessment Summary: The patient is a 29-year-old male who had the development of an abscess on his right ring finger just anterior to the PIP joint. This progressed considerably in spite of 2 attempts on his own to lay it with a needle. He was admitted for IV antibiotics which did not slow the progression of swelling, purulent fluctuance and erythema. We then took him to the operating room on 03/30/2020 where we decompressed his abscess. This was then sent for culture while the patient continue to receive IV antibiotics as well as wound care management while in the hospital. His course was otherwise not complicated aside from his revealing after a few days that he was in fact an IV drug abuser which he did previously denied. He did not have out right withdrawal in the hospital though he did have episodes of profuse sweating. Hospitalist was consulted in order to res counselor the patient regards to ways to quit or other medical management for his addiction. Their recommendations are listed below. The patient had no other acute events or complications during the course of his stay, on 04/01/2020 the culture results are back as MRSA single organism infection. At this point we will discharge him home on Bactrim and follow-up with close follow-up in 1 week for further wound evaluation and if there is any further targeted antibiotic we will adjust it accordingly. Patient does have history of IV methamphetamine use - After thorough conversation and evaluation of patient, I do not recommend any further work-up for endocarditis as patient's blood cultures are negative >48hrs, his fever is gradually resolving following source control with I&D and patient does not show any other significant stigmata associated with endocardit is. -Recommend treating for finger abscess with IV antibiotics and transitioning to p.o. antibiotics -Follow-up wound culture -Recommend social work to discuss with patient about options for drug abuse rehabilitation outpatient if patient is willing. -Asthma is currently controlled -Check HIV and hepatitis profile -he does not need to wait inpatient for the result if deemed clinically ready for discharge and can always follow up for the result as outpatient. If any of the test is positive, he will need referral to [facility] as outpatient to initiate treatment. - Additional Information Resuscitation Status: Full Code Discharge Diet: As Tolerated Discharge Activity: No Lifting/Push/Pulling Referrals: WHITNEY HAWTHORNE JR, DO [ACTIVE PROVISIONAL STAFF] - Prescriptions: Oxycodone HCl [Oxy-Ir 5 mg Tablet] 5 mg PO Q4HP PRN #30 tablet PRN Reason: Pain Scale Of 3 Sulfamethoxazole/Trimethoprim [Septra-Ds 800-160 mg Tablet] 1 tab PO BID 14 Days tablet Home Medications: Acetaminophen [Tylenol 325 mg Tablet] 650 mg PO Q4HP PRN tablet 04/01/20 Docusate Sodium [Colace 100 mg Capsule] 100 mg PO DAILY capsule 04/01/20 Oxycodone HCl [Oxy-Ir 5 mg Tablet] 5 mg PO Q4HP PRN #30 tablet 04/01/20 Sulfamethoxazole/Trimethoprim [Septra-Ds 800-160 mg Tablet] 1 tab PO BID 14 Days tablet 04/01/20 History of Present Illiness History of Present Illness: JOELLEN TRAN is a 29 year old male presents with swelling, erythema, pain and inability to fully move his right ring finger. The patient reports that 3 days ago he had the initiation of swelling and a small pustule that he attempted to lay himself. He reports that after doing so with a sewing needle, only blood came out and he was unable to provide any relief. Over the next few days his swelling increased as well as erythema and pain. He tried to lay it once again and then decided to return to the emergency department. Pain to the finger is described as burning and aching, worse with any attempted motion, improved with rest and pain medication, 6 out of 10 at rest up to 10 out of 10 with motion. He denies any active drainage or purulence. He has had fever overnight since admission. He also has a history of bedbugs as of 3 weeks ago and was actively treating those at the time of admission. He has multiple small lesions under his armpits consistent with a bug bites. Physical Exam Vital Signs: Temp Pulse Resp BP Pulse Ox 97.9 F 65 16 117/70 100 04/01/20 12:02 04/01/20 12:02 04/01/20 12:02 04/01/20 12:02 04/01/20 12:02 Intake & Output 03/31/20 04/01/20 04/02/20 06:59 06:59 06:59 Intake Total 5681 4234 250 Output Total 3 Balance 5678 4234 250 Weight 68.5 kg 68.5 kg Results Laboratory Results: WBC 10.1 10^3/uL (4.0-10.5) 03/30/20 05:37 RBC 4.17 10^6/uL (4.35-5.55) L 03/30/20 05:37 Hgb 12.2 g/dL (13.5-17.0) L 03/30/20 05:37 Hct 35.2 % (37.9-51.0) L 03/30/20 05:37 MCV 84 fl (80-97) 03/30/20 05:37 MCH 29.3 pg (27.0-33.4) 03/30/20 05:37 MCHC 34.8 g/dL (32.0-36.0) 03/30/20 05:37 RDW 13.0 % (11.5-14.0) 03/30/20 05:37 Plt Count 283 10^3/uL (150-450) 03/30/20 05:37 Lymph % (Auto) 19.0 % (13-45) 03/30/20 05:37 Hamblen % (Auto) 9.8 % (3-13) 03/30/20 05:37 Eos % (Auto) 2.9 % (0-6) 03/30/20 05:37 Baso % (Auto) 0.2 % (0-2) 03/30/20 05:37 Absolute Neuts (auto) 6.9 10^3/uL (1.7-8.2) 03/30/20 05:37 Absolute Lymphs (auto) 1.9 10^3/uL (0.5-4.7) 03/30/20 05:37 Absolute Monos (auto) 1.0 10^3/uL (0.1-1.4) 03/30/20 05:37 Absolute Eos (auto) 0.3 10^3/uL (0.0-0.6) 03/30/20 05:37 Absolute Basos (auto) 0.0 10^3/uL (0.0-0.2) 03/30/20 05:37 Seg Neutrophils % 68.1 % (42-78) 03/30/20 05:37 Sodium 135.8 mmol/L (137-145) L 03/28/20 22:08 Potassium 4.1 mmol/L (3.6-5.0) 03/28/20 22:08 Chloride 100 mmol/L (98-107) 03/28/20 22:08 Carbon Dioxide 27 mmol/L (22-30) 03/28/20 22:08 Anion Gap 9 (5-19) 03/28/20 22:08 BUN 10 mg/dL (7-20) 03/28/20 22:08 Creatinine 0.73 mg/dL (0.52-1.25) 03/28/20 22:08 Est GFR ( Amer) > 60 (>60) 03/28/20 22:08 Est GFR (MDRD) Non-Af > 60 (>60) 03/28/20 22:08 Glucose 128 mg/dL (75-110) H 03/28/20 22:08 POC Glucose 184 mg/dL (70-110) H 03/30/20 21:49 Calcium 9.1 mg/dL (8.4-10.2) 03/28/20 22:08 Total Bilirubin 0.4 mg/dL (0.2-1.3) 03/28/20 22:08 Direct Bilirubin 0.3 mg/dL (0.0-0.4) 03/28/20 22:08 Neonat Total Bilirubin Not Reportable 03/28/20 22:08 Neonat Direct Bilirubin Not Reportable 03/28/20 22:08 Neonat Indirect Bili Not Reportable 03/28/20 22:08 AST 57 U/L (17-59) 03/28/20 22:08 ALT 145 U/L (<50) H 03/28/20 22:08 Alkaline Phosphatase 83 U/L (38-126) 03/28/20 22:08 Total Protein 7.4 g/dL (6.3-8.2) 03/28/20 22:08 Albumin 3.6 g/dL (3.5-5.0) 03/28/20 22:08 Time Trough Drawn 1345 03/30/20 13:45 Vancomycin Trough 13.7 ug/mL (5.0-20.0) 03/30/20 13:45 Hepatitis A IgM Ab Negative (Negative) 03/30/20 13:45 Hep Bs Antigen Negative (Negative) 03/30/20 13:45 Hep B Core IgM Ab Negative (Negative) 03/30/20 13:45 Hepatitis C Antibody >11.0 s/co ratio (0.0-0.9) H 03/30/20 13:45 HIV 1&2 Antibody NEGATIVE (NEGATIVE) 03/30/20 13:45 SARS-CoV-2 (PCR) NEGATIVE (NEGATIVE) 03/29/20 06:07 Impressions: Hand X-Ray 03/28/20 21:54 IMPRESSION: No acute osseous abnormality. Nonspecific soft tissue swelling of the fourth digit copyright 2010 [employer]- All Rights Reserved Stroke Is this a Stroke Patient?: No Acute Heart Failure Is this a Heart Failure Patient?: No
[2020-04-01 13:54] VITALS: BP 130/54
[2020-04-01] MEDS ORDERED: VANCOMYCIN HCL 1,250 MG in DEXTROSE 5%-WATER 250 ML IV SCH (14:00)
[2020-04-01] MEDS ORDERED: SULFAMETHOXAZOLE/TRIMETHOPRIM 800-160 MG TABLET PO SCH (18:00)
== END 2020-04-01 14:30 | disposition home or self-care (01) | DRG 603 ==
LOC: ER 21:31 → EH 03-29 04:01 → OBSVTOIN 03-29 04:01 → INTOOBSV 03-29 04:01 → 4N 03-29 05:47 → INTOOBSV 04-01 10:31 → OBSVTOIN 04-01 10:31
PROVIDERS: ADMIT Orthopaedic Surgery; ATTEND Orthopaedic Surgery
PROC: 0J9J3ZX Drainage of Right Hand Subcutaneous Tissue and Fascia, Percutaneous Approach, Diagnostic (ICD-10-PCS; principal; 2020-03-30 12:00)
DX: L02.511 Cutaneous abscess of right hand (principal); B95.62 Methicillin resistant Staphylococcus aureus infection as the cause of diseases classified elsewhere; F15.10 Other stimulant abuse, uncomplicated; F17.200 Nicotine dependence, unspecified, uncomplicated; J45.20 Mild intermittent asthma, uncomplicated; S40.862A Insect bite (nonvenomous) of left upper arm, initial encounter; S40.861A Insect bite (nonvenomous) of right upper arm, initial encounter; R21 Rash and other nonspecific skin eruption; W57.XXXA Bitten or stung by nonvenomous insect and other nonvenomous arthropods, initial encounter; Z79.899 Other long term (current) drug therapy; Z03.818 Encounter for observation for suspected exposure to other biological agents ruled out; Z79.52 Long term (current) use of systemic steroids
CPT/HCPCS: 00400; 36415; 80053; 80074; 80202; 82962; 85025; 86701; 87040; 87070; 87075; 87077; 87186; 87205; 87635; 96365; 96367; 96375; 99140; 99285; C9803; G0378; J1885; J2250; J2543; J2704; J3010; J3370; J3490; J7030; J7050; J7060

== ENCOUNTER 2020-08-05 12:51 | Emergency (ER) | payer MEDICAID ==
--- NOTE | 2020-08-05 13:47 | ER Document Report ---
ED Medical Screen (RME) - General Chief Complaint: Knee Pain Stated Complaint: POSSIBLE KNEE INFECTION Time Seen by Provider: 08/05/20 13:34 Mode of Arrival: Ambulatory Information source: Patient Notes: 29-year-old male patient presented to emergency room chief complaint of possible infection to his right knee. 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 He reports a few days ago he was working on the concrete and scraped his knee. He states that the last time he had a similar infection he was hospitalized for several days and put on vancomycin. He denies any fever but r eports some chills and states he has been taking ibuprofen [id number] for the pain. He reports pain is worse with movement of the knee. He does still have full range of motion. There is an indurated erythematous area noted to the anterior knee with erythema extending out several centimeters from the actual infection itself. I have greeted and performed a rapid initial assessment of this patient. A comprehensive ED assessment and evaluation of the patient, analysis of test results and completion of the medical decision making process will be conducted by additional ED providers. I have specifically instructed the patient or family members with the patient to immediately return to any nursing staff should anything change in the patient's condition or with their chief complaint. TRAVEL OUTSIDE OF THE [place] IN LAST 30 DAYS: No - Related Data Allergies/Adverse Reactions: No Known Allergies Allergy (Verified 03/29/20 03:09) Past Medical History Pulmonary Medical History: Reports: Hx Asthma, Hx Bronchitis Neurological Medical History: Reports: Hx Migraine Renal/ Medical History: Denies: Hx Peritoneal Dialysis Psychiatric Medical History: Denies: Hx Depression - Immunizations Hx Diphtheria, Pertussis, Tetanus Vaccination: Yes Physical Exam - Vital signs Vitals: Temp Pulse Resp BP Pulse Ox 98.3 F 102 H 16 147/81 H 99 08/05/20 13:15 08/05/20 13:15 08/05/20 13:15 08/05/20 13:15 08/05/20 13:15 Course - Vital Signs Vital signs: Temp Pulse Resp BP Pulse Ox 98.3 F 102 H 16 147/81 H 99 08/05/20 13:15 08/05/20 13:15 08/05/20 13:15 08/05/20 13:15 08/05/20 13:15
[2020-08-05 14:11] LABS: ABSOLUTE BASOPHILS # (AUTO) 0.1 10^3/uL (0.0-0.2); ABSOLUTE EOSINOPHILS # (AUTO) 0.4 10^3/uL (0.0-0.6); ABSOLUTE MONOCYTES (AUTO) 0.9 10^3/uL (0.1-1.4); ABSOLUTE NEUT (AUTO) 6.1 10^3/uL (1.7-8.2); BASOPHILS % (AUTO) 0.8 % (0-2); EOSINOPHILS % (AUTO) 4.2 % (0-6); HEMATOCRIT 41.5 % (37.9-51.0); LYMPHOCYTES % (AUTO) 28.2 % (13-45); MEAN CORPUSCULAR HEMOGLOBIN 28.3 pg (27.0-33.4); MEAN CORPUSCULAR HGB CONC 33.8 g/dL (32.0-36.0); MEAN CORPUSCULAR VOLUME 84 fl (80-97); PLATELET COUNT 271 10^3/uL (150-450); RED BLOOD COUNT 4.95 10^6/uL (4.35-5.55); SEGMENTED NEUTROPHILS % (AUTO) 57.8 % (42-78); TOTAL CELLS COUNTED % (AUTO) 100 %; WHITE BLOOD COUNT 10.6 10^3/uL (4.0-10.5)
[2020-08-05 14:32] LABS: ALKALINE PHOSPHATASE 72 U/L (38-126); ANION GAP 5 (5-19); ASPARTATE AMINO TRANSFERASE 88 U/L (17-59); BILIRUBIN,DIRECT 0.2 mg/dL (0.0-0.4); BILIRUBIN,TOTAL 0.5 mg/dL (0.2-1.3); BLOOD UREA NITROGEN 14 mg/dL (7-20); C-REACTIVE PROTEIN 12.7 mg/L (<10.0); CALCIUM 9.4 mg/dL (8.4-10.2); CARBON DIOXIDE 32 mmol/L (22-30); CHLORIDE 101 mmol/L (98-107); GLUCOSE 76 mg/dL (75-110); POTASSIUM 3.7 mmol/L (3.6-5.0); TOTAL PROTEIN 7.6 g/dL (6.3-8.2)
[2020-08-05 14:47] LABS: ERYTHROCYTE SEDIMENTATION RATE 20 mm/hr (0-15)
--- NOTE | 2020-08-05 17:46 | ER Document Report ---
HPI - HPI Time Seen by Provider: 08/05/20 13:34 Pain Level: 3 Notes: 29-year-old male patient presented to emergency room chief complaint of possible infection to his right knee. 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 He reports a few days ago he was working on the concrete and scraped his knee. He states that the last time he had a similar infection he was hospitalized for several days and put on vancomycin. He denies any fever but reports some chills and states he has been taking ibuprofen [id number]. - ROS Systems Reviewed and Negative: Yes All other systems reviewed and negative - DERM Skin Color: Erythema Skin Problems: Blister Past Medical History - General Information source: Patient - Social History Smoking Status: Current Every Day Smoker Drug Abuse: None Family History: Hypertension, Malignancy Pulmonary Medical History: Reports: Hx Asthma, Hx Bronchitis Neurological Medical History: Reports: Hx Migraine Renal/ Medical History: Denies: Hx Peritoneal Dialysis Psychiatric Medical History: Denies: Hx Depression - Immunizations Hx Diphtheria, Pertussis, Tetanus Vaccination: Yes Vertical Provider Document - CONSTITUTIONAL Notes: PHYSICAL EXAMINATION: GENERAL: Well-appearing, well-nourished and in no acute distress. HEAD: Atraumatic, normocephalic. EYES: Pupils equal round extraocular movements intact, conjunctiva are normal. ENT: Nares patent NECK: Normal range of motion LUNGS: No respiratory distress Musculoskeletal: Normal range of motion NEUROLOGICAL: Normal speech, normal gait. PSYCH: Normal mood, normal affect. SKIN: There is an indurated erythematous area noted to the anterior knee with erythema extending out several centimeters from the actual infection itself. - INFECTION CONTROL TRAVEL OUTSIDE OF THE [place] IN LAST 30 DAYS: No Course - Re-evaluation Re-evalutation: Lab work today is reassuring. I did consult my attending physician, Dr. Amaya who personally came and evaluated the patient with me. He does recommend proceeding with incision and drainage. Incision and drainage performed, patient tolerated moderately well. The patient's emergency department workup and current diagnosis were explained t o the patient and or family. Follow-up instructions were provided. Medications if prescribed were discussed. Instructions for when to return to the emergency department including specific worrisome symptoms were discussed with the patient and/or family. - Vital Signs Vital signs: Temp Pulse Resp BP Pulse Ox 98.3 F 102 H 16 147/81 H 99 08/05/20 13:15 08/05/20 13:15 08/05/20 13:15 08/05/20 13:15 08/05/20 13:15 - Laboratory Results Result Diagrams: 08/05/20 13:49 08/05/20 13:49 Laboratory Results Interpreted: 08/05/20 08/05/20 13:49 13:49 WBC 10.6 H ESR 20 H Carbon Dioxide 32 H AST 88 H ALT 175 H C-Reactive Protein 12.7 H Critical Laboratory Results Reviewed: No Critical Results - Radiology Results Critical Radiology Results Reviewed: No Critical Results Procedures - Incision and Drainage Right knee Type: Simple Anesthetic type: 1% Lidocaine Blade size: 11 I&D procedure: Betadine prep applied Incision Method: Incision made by scalpel Discharge - Discharge Clinical Impression: Abscess Condition: Stable Disposition: HOME, SELF-CARE Additional Instructions: You were seen for an abscess that required drainage. Please clean this area with soap and water twice daily and apply a topical antibiotic. Dress the area after each cleaning. Please return if you develop fever, vomiting, the pain at the site worsens, you notice spreading redness from the area, or you have any other symptoms that are concerning to you. Prescriptions: Sulfamethoxazole/Trimethoprim [Bactrim Ds Tablet] 1 tab PO BID #20 tablet Forms: Return to Work
[2020-08-05 17:59] VITALS: BP 133/67
== END 2020-08-05 17:47 | disposition home or self-care (01) ==
LOC: ER 12:51
DX: L02.91 Cutaneous abscess, unspecified (principal); F17.200 Nicotine dependence, unspecified, uncomplicated; J45.909 Unspecified asthma, uncomplicated; Z86.14 Personal history of Methicillin resistant Staphylococcus aureus infection
CPT/HCPCS: 36415; 80053; 85025; 85652; 86140; 99283